=== PATIENT | male | born 1945 | race Caucasian/White ===

== ENCOUNTER → 2016-10-13 | Outpatient (CLI) | payer MEDICARE, MEDICAID ==
[~2016-10-13] MED LIST: BUSP10 PO; CLON1 PO; CYMB30CA PO; IRON18TA2 PO; LEVO50TA4 PO; NEUR600T PO; TRAM100T19 PO
[2016-10-13 09:33] LABS: HDL CHOLESTEROL 40.1 MG/DL (40.0-60.0)
== END ==
LOC: CLAB 08:31
PROVIDERS: ATTEND Family Medicine
DX: E03.9 Hypothyroidism, unspecified (principal); Z12.5 Encounter for screening for malignant neoplasm of prostate
CPT/HCPCS: 36415; 80061; 84443; G0103

== ENCOUNTER → 2017-12-09 | Outpatient (CLI) | payer MEDICARE, MEDICAID | LOC: CLAB 09:06 | PROVIDERS: ATTEND Family Medicine | DX: Z13.9 Encounter for screening, unspecified (principal) ==